=== PATIENT | male | born 1945 | race Caucasian/White ===

== ENCOUNTER 2022-05-25 09:59 | Emergency (ER) | payer MEDICARE ==
[~2022-05-25] VITALS: Ht 172.7 cm; Wt 72.7 kg
[2022-05-25] MEDS ORDERED: ATOR40TA71 PO ×2 (10:18→11:13)
[2022-05-25] MEDS ORDERED: METF-1211 PO ×3 (10:18→13:25)
[2022-05-25] MEDS ORDERED: LISI-661 PO ×2 (10:18→11:13)
[2022-05-25 10:55] VITALS: BP 120/66
== END 2022-05-25 11:32 | disposition home or self-care (01) ==
LOC: EMS 10:08
DX: E11.9 Type 2 diabetes mellitus without complications (principal); Z86.39 Personal history of other endocrine, nutritional and metabolic disease; Z76.0 Encounter for issue of repeat prescription; Z98.890 Other specified postprocedural states
CPT/HCPCS: 82962; 99282